=== PATIENT | female | born 1960 | race Caucasian/White ===

== ENCOUNTER 2020-02-06 11:29 | Inpatient (IN) | payer BC, OTHER ==
[~2020-02-06] VITALS: Ht 165.1 cm; Wt 62.6 kg
[~2020-02-06 11:29] MED LIST: NUBAIN IM; PROTONIX IV40 M1 PO; Z.0.DIAZEPAM10 MG PO; Z.0.PHENERGAN25 M1 PO; Z.0.SOMA350 MG PO; Z.0.TEMAZEPAM30 MG PO
[2020-02-06] MEDS ORDERED: DIATRIZOATE MEGL/DIATRIZOA SOD 30 ML BTL PO ONE (11:58)
[2020-02-06] MEDS ORDERED: ONDANSETRON HCL INJ 2MG/ML 2ML 2 MG/ML VIAL IV STA (12:05)
[2020-02-06] MEDS ORDERED: MORPHINE SULFATE INJ 4 MG/ML INJ 1ML IV STA (12:05)
[2020-02-06 12:20] LABS: BASOPHILS % 0.2 % (0.0-1.0); HEMOGLOBIN 14.7 g/dL (12.0-16.0); LYMPHOCYTES % 7.8 % (18.0-39.1); MEAN CORPUSCULAR HGB CONC 33.4 g/dL (31-35); MEAN CORPUSCULAR VOLUME 89.8 fL (81-99); MONOCYTES # (AUTO) 0.2 (0.2-0.8); MONOCYTES % 1.5 % (4.4-11.3); NEUTROPHILS # (AUTO) 11.7 (2.1-6.9); NEUTROPHILS % 90.1 % (38.7-80.0); PLATELET COUNT 468 x10e3/uL (140-360); RED CELL DISTRIBUTION WIDTH 12.4 % (11.7-14.4)
[2020-02-06 12:24] LABS: CLARITY,URINE CLOUDY (CLEAR); COLOR,URINE YELLOW (YELLOW); LEUKOCYTE ESTERASE ,URINE NEGATIVE (NEGATIVE); NITRITE,URINE NEGATIVE (NEGATIVE); PROTEIN,URINE DIPSTICK NEGATIVE (NEGATIVE)
[2020-02-06 12:25] LABS: KETONES,URINE NEGATIVE (NEGATIVE); URINE UROBILINOGEN 0.2 mg/dL (0.2 - 1)
[2020-02-06 12:37] LABS: EPITHELIAL CELLS,URINE FEW /LPF
[2020-02-06 12:38] LABS: BACTERIA,URINE FEW /HPF; RBC,URINE 0-5 /HPF (0-5); WBC,URINE (MAN) 0-5 /HPF (0-5)
[2020-02-06 12:41] LABS: ALANINE AMINOTRANSFERASE 13 IU/L (0-55); ALBUMIN 4.6 g/dL (3.5-5.0); ALBUMIN/GLOBULIN RATIO 1.2 (0.8-2.0); ALKALINE PHOSPHATASE 84 IU/L (40-150); ANION GAP 20.5 mmol/L (8-16); BLOOD UREA NITROGEN 15 mg/dL (7-26); BUN/CREATININE RATIO 21 (6-25); CALCIUM 10.1 mg/dL (8.4-10.2); CARBON DIOXIDE 19 mmol/L (22-29); CHLORIDE 104 mmol/L (98-107); CREATINE KINASE 77 IU/L (29-168); EST GLOMERULAR FILTRATION RATE > 60 ML/MIN (60-); GLUCOSE 153 mg/dL (74-118); POTASSIUM 3.5 mmol/L (3.5-5.1); SODIUM 140 mmol/L (136-145)
[2020-02-06] MEDS ORDERED: SODIUM CHLORIDE 0.9% 50ML 50 ML ONE (13:07)
[2020-02-06] MEDS ORDERED: IOPAMIDOL 370 MG/ML 200 ML INFUS..BTL INJ ONE (13:08)
[2020-02-06] MEDS ORDERED: PROMETHAZINE 25MG/ NS 50ML (IV) IV ONE (13:15)
[2020-02-06] MEDS ORDERED: SODIUM CHLORIDE 0.9% 1000ML 1,000 ML IV SCH (14:45)
[2020-02-06] MEDS ORDERED: MORPHINE SULFATE 2 MG/ML SYR 1ML IV PRN (14:45)
[2020-02-06] MEDS ORDERED: METRONIDAZOLE 500MG/NS 100ML 100 ML IV SCH ×2 (16:00)
[2020-02-06] MEDS ORDERED: CIPROFLOXACIN 400 MG/D5W 200ML 200 ML IV SCH (16:00)
[2020-02-06] MEDS ORDERED: NON-FORMULARY MEDICATION (Diazepam 10 MG) PO SCH (17:30)
[2020-02-06] MEDS ORDERED: NON-FORMULARY MEDICATION (Temazepam 30 MG) PO PRN (17:30)
[2020-02-06] MEDS: KCL 20MEQ/.9 SOD CHL 1,000 ML IV SCH (17:30)
[2020-02-06] MEDS ORDERED: PROMETHAZINE 12.5MG/ NACL 0.9% 12.5 MG/50 ML BAG IV ONE (17:30)
[2020-02-06] MEDS ORDERED: DIAZEPAM 5 MG TAB PO PRN (17:45)
[2020-02-06] MEDS: PANTOPRAZOLE 40 MG 10ML VIAL IV SCH (18:21)
[2020-02-06] MEDS: MORPHINE SULFATE INJ 4 MG/ML INJ 1ML IV PRN ×2 (18:21→22:50)
[2020-02-06] MEDS: CEFTRIAXONE SOD 1 GM/NS 50 ML 50 ML IV SCH (19:07)
[2020-02-06 20:00] VITALS: BP 116/73
[2020-02-06 20:20] VITALS: BP 116/73
[2020-02-06] MEDS: GABAPENTIN 300 MG CAP PO SCH (20:20)
[2020-02-06] MEDS: CARISOPRODOL 350 MG TAB PO SCH (20:31)
[2020-02-06] MEDS ORDERED: TEMAZEPAM 15 MG CAP PO PRN (21:00)
[2020-02-06] MEDS: ONDANSETRON HCL INJ 2MG/ML 2ML 2 MG/ML VIAL IV PRN (22:50)
[2020-02-07] VITALS (8 sets, daily range): BP systolic 110–160; BP diastolic 57–95
[2020-02-07] MEDS ORDERED: METRONIDAZOLE 500MG/NS 100ML 100 ML IV SCH
[2020-02-07] MEDS: METRONIDAZOLE 500MG/NS 100ML 100 ML IV SCH ×3 (00:45→18:17)
[2020-02-07] MEDS: KCL 20MEQ/.9 SOD CHL 1,000 ML IV SCH ×2 (02:04→14:22)
[2020-02-07] MEDS: MORPHINE SULFATE INJ 4 MG/ML INJ 1ML IV PRN ×4 (04:50→18:40)
[2020-02-07] MEDS: ONDANSETRON HCL INJ 2MG/ML 2ML 2 MG/ML VIAL IV PRN ×4 (04:50→18:40)
[2020-02-07] MEDS ORDERED: CITRATE OF MAGNESIA 300ML BOTTLE PO ONE ×3 (05:00→14:00)
[2020-02-07 05:46] LABS: BASOPHILS % 0.2 % (0.0-1.0); EOSINOPHILS % 0.1 % (0.0-6.0); HEMATOCRIT 39.3 % (34.2-44.1); HEMOGLOBIN 12.9 g/dL (12.0-16.0); LYMPHOCYTES # (AUTO) 2.7 (1.0-3.2); LYMPHOCYTES % 17.8 % (18.0-39.1); MEAN CORPUSCULAR HEMOGLOBIN 30.1 pg (28-32); MEAN CORPUSCULAR HGB CONC 32.8 g/dL (31-35); MEAN CORPUSCULAR VOLUME 91.6 fL (81-99); MONOCYTES # (AUTO) 1.4 (0.2-0.8); MONOCYTES % 9.2 % (4.4-11.3); NEUTROPHILS # (AUTO) 11.1 (2.1-6.9); NEUTROPHILS % 72.2 % (38.7-80.0); PLATELET COUNT 376 x10e3/uL (140-360); RED BLOOD COUNT 4.29 x10e6/uL (3.6-5.1)
[2020-02-07 06:18] LABS: ANION GAP 12.3 mmol/L (8-16); BLOOD UREA NITROGEN 10 mg/dL (7-26); BUN/CREATININE RATIO 15 (6-25); CARBON DIOXIDE 25 mmol/L (22-29); CHLORIDE 109 mmol/L (98-107); CREATININE, SERUM 0.65 mg/dL (0.57-1.11); EST GLOMERULAR FILTRATION RATE > 60 ML/MIN (60-); GLUCOSE 113 mg/dL (74-118); POTASSIUM 3.3 mmol/L (3.5-5.1); SODIUM 143 mmol/L (136-145)
[2020-02-07] MEDS: PROMETHAZINE 12.5MG/ NACL 0.9% 12.5 MG/50 ML BAG IV PRN (07:44)
[2020-02-07] MEDS: PANTOPRAZOLE 40 MG 10ML VIAL IV SCH ×2 (09:19→18:17)
[2020-02-07] MEDS: CARISOPRODOL 350 MG TAB PO SCH ×3 (09:19→20:30)
[2020-02-07] MEDS: CEFTRIAXONE SOD 1 GM/NS 50 ML 50 ML IV SCH (18:17)
[2020-02-07] MEDS ORDERED: BISACODYL 5 MG TAB EC PO ONE (19:15)
[2020-02-07] MEDS: GABAPENTIN 300 MG CAP PO SCH (20:30)
[2020-02-08] VITALS (7 sets, daily range): BP systolic 104–152; BP diastolic 61–81
[2020-02-08] MEDS ORDERED: BISACODYL 5 MG TAB EC PO ONE ×3 (00:45→01:45)
[2020-02-08] MEDS: METRONIDAZOLE 500MG/NS 100ML 100 ML IV SCH ×3 (01:00→16:51)
[2020-02-08] MEDS: KCL 20MEQ/.9 SOD CHL 1,000 ML IV SCH ×3 (04:00→19:30)
[2020-02-08 04:59] LABS: BASOPHILS % 0.2 % (0.0-1.0); EOSINOPHILS % 0.2 % (0.0-6.0); HEMATOCRIT 40.4 % (34.2-44.1); HEMOGLOBIN 13.1 g/dL (12.0-16.0); LYMPHOCYTES # (AUTO) 3.3 (1.0-3.2); LYMPHOCYTES % 24.1 % (18.0-39.1); MEAN CORPUSCULAR HEMOGLOBIN 30.4 pg (28-32); MEAN CORPUSCULAR HGB CONC 32.4 g/dL (31-35); MEAN CORPUSCULAR VOLUME 93.7 fL (81-99); MONOCYTES # (AUTO) 1.1 (0.2-0.8); MONOCYTES % 7.8 % (4.4-11.3); NEUTROPHILS # (AUTO) 9.1 (2.1-6.9); NEUTROPHILS % 67.3 % (38.7-80.0); PLATELET COUNT 408 x10e3/uL (140-360); RED BLOOD COUNT 4.31 x10e6/uL (3.6-5.1); RED CELL DISTRIBUTION WIDTH 12.6 % (11.7-14.4)
[2020-02-08 05:15] LABS: ANION GAP 11.3 mmol/L (8-16); BLOOD UREA NITROGEN 9 mg/dL (7-26); BUN/CREATININE RATIO 13 (6-25); CALCIUM 8.8 mg/dL (8.4-10.2); CARBON DIOXIDE 25 mmol/L (22-29); CHLORIDE 107 mmol/L (98-107); CREATININE, SERUM 0.69 mg/dL (0.57-1.11); EST GLOMERULAR FILTRATION RATE > 60 ML/MIN (60-); GLUCOSE 97 mg/dL (74-118); POTASSIUM 3.3 mmol/L (3.5-5.1); SODIUM 140 mmol/L (136-145)
[2020-02-08] MEDS: CARISOPRODOL 350 MG TAB PO SCH ×4 (08:32→21:30)
[2020-02-08] MEDS: PANTOPRAZOLE 40 MG 10ML VIAL IV SCH ×2 (08:34→16:18)
[2020-02-08] MEDS: PROMETHAZINE 12.5MG/ NACL 0.9% 12.5 MG/50 ML BAG IV PRN ×3 (08:52→23:00)
[2020-02-08] MEDS ORDERED: LIDOCAINE HCL 2% LOCAL INJ 5 ML SDV VIAL INJ ONE (12:09)
[2020-02-08] MEDS ORDERED: PROPOFOL IV EMULSION 10 MG/ML 20 ML VIAL ONE (12:09)
[2020-02-08] MEDS: ONDANSETRON HCL INJ 2MG/ML 2ML 2 MG/ML VIAL IV PRN ×3 (12:44→18:20)
[2020-02-08] MEDS: MORPHINE SULFATE INJ 4 MG/ML INJ 1ML IV PRN ×4 (12:44→23:00)
[2020-02-08] MEDS ORDERED: FENTANYL CITRATE/PF 100MCG/2 ML INJ ONE (12:49)
[2020-02-08] MEDS ORDERED: MIDAZOLAM HCL 2 MG/2 ML VIAL ONE (12:49)
[2020-02-08] MEDS ORDERED: HYOSCYAMINE SULFATE 0.5 MG/ML INJ ONE (14:34)
[2020-02-08 15:49] LABS: WBC,FECAL (FECAL LACTOFERRIN) POSITIVE (NEGATIVE)
[2020-02-08] MEDS: CEFTRIAXONE SOD 1 GM/NS 50 ML 50 ML IV SCH (18:13)
[2020-02-08] MEDS: GABAPENTIN 300 MG CAP PO SCH (21:30)
[2020-02-09] VITALS (8 sets, daily range): BP systolic 122–139; BP diastolic 63–81
[2020-02-09] MEDS: METRONIDAZOLE 500MG/NS 100ML 100 ML IV SCH ×3 (01:00→16:06)
[2020-02-09] MEDS: ONDANSETRON HCL INJ 2MG/ML 2ML 2 MG/ML VIAL IV PRN ×4 (05:00→20:02)
[2020-02-09] MEDS: MORPHINE SULFATE INJ 4 MG/ML INJ 1ML IV PRN ×4 (05:00→20:02)
[2020-02-09] MEDS: KCL 20MEQ/.9 SOD CHL 1,000 ML IV SCH ×3 (05:30→21:00)
[2020-02-09 05:36] LABS: MAGNESIUM 1.8 MG/DL (1.3-2.1); PHOSPHORUS 2.6 MG/DL (2.3-4.7)
[2020-02-09 05:49] LABS: ANION GAP 11.1 mmol/L (8-16); BLOOD UREA NITROGEN 9 mg/dL (7-26); BUN/CREATININE RATIO 13 (6-25); CALCIUM 8.1 mg/dL (8.4-10.2); CARBON DIOXIDE 24 mmol/L (22-29); CHLORIDE 110 mmol/L (98-107); CREATININE, SERUM 0.67 mg/dL (0.57-1.11); EST GLOMERULAR FILTRATION RATE > 60 ML/MIN (60-); GLUCOSE 85 mg/dL (74-118); POTASSIUM 3.1 mmol/L (3.5-5.1); SODIUM 142 mmol/L (136-145)
[2020-02-09] MEDS ORDERED: MAGNESIUM SULFATE 2GM/50ML IV ONE (07:45)
[2020-02-09] MEDS: PANTOPRAZOLE 40 MG 10ML VIAL IV SCH ×2 (08:30→16:06)
[2020-02-09] MEDS: PROMETHAZINE 12.5MG/ NACL 0.9% 12.5 MG/50 ML BAG IV PRN (08:30)
[2020-02-09] MEDS: CARISOPRODOL 350 MG TAB PO SCH ×3 (08:30→20:29)
[2020-02-09] MEDS ORDERED: MAGNESIUM SULFATE 2GM/50ML 50 ML IV ONE (08:30)
[2020-02-09] MEDS ORDERED: POTASSIUM CHLORIDE 10MEQ EA PO ONE (08:45)
[2020-02-09] MEDS ORDERED: GADOBENATE DIMEGLUMINE 1 ML IV ONE (13:54)
[2020-02-09] MEDS ORDERED: SODIUM CHLORIDE 0.9% 100 ML ONE (13:54)
[2020-02-09 15:12] LABS: C DIFFICILE TOXIN A&B AMP PROB NEGATIVE (NEGATIVE)
[2020-02-09] MEDS: CEFTRIAXONE SOD 1 GM/NS 50 ML 50 ML IV SCH (16:51)
[2020-02-09] MEDS: GABAPENTIN 300 MG CAP PO SCH (20:29)
[2020-02-10] VITALS (7 sets, daily range): BP systolic 115–137; BP diastolic 64–84
[2020-02-10] MEDS: MORPHINE SULFATE INJ 4 MG/ML INJ 1ML IV PRN ×6 (00:13→22:36)
[2020-02-10] MEDS: ONDANSETRON HCL INJ 2MG/ML 2ML 2 MG/ML VIAL IV PRN ×5 (00:13→22:36)
[2020-02-10] MEDS: METRONIDAZOLE 500MG/NS 100ML 100 ML IV SCH ×3 (00:13→17:50)
[2020-02-10] MEDS ORDERED: PANTOPRAZOLE 40 MG 10ML VIAL IV STA (00:56)
[2020-02-10] MEDS ORDERED: METOCLOPRAMIDE HCL 10 MG/2ML VIAL IV STA (00:56)
[2020-02-10] MEDS ORDERED: DONNATAL/LIDOCAINE/MAALOX 30 ML SUSP PO ONE (01:00)
[2020-02-10] MEDS ORDERED: MAGNESIUM/ALUMINUM/SIMETHICONE 30 ML UDC PO ONE (01:15)
[2020-02-10] MEDS ORDERED: BELLADONNA ALK/PHENOBARBITAL 5 ML UDC PO ONE (01:15)
[2020-02-10] MEDS ORDERED: LIDOCAINE VISC 2% SOLN 15 ML UDC PO ONE (01:15)
[2020-02-10] MEDS ORDERED: SODIUM CHLORIDE 0.9% 250ML 250 ML ONE (02:09)
[2020-02-10] MEDS: PANTOPRAZOL 40MG/SOD CHL 0.9% 250 ML IV SCH (02:33)
[2020-02-10] MEDS ORDERED: METOCLOPRAMIDE HCL 10 MG/2ML VIAL IV SCH (06:00)
[2020-02-10 06:03] LABS: BASOPHILS % 0.4 % (0.0-1.0); EOSINOPHILS # (AUTO) 0.3 (0.0-0.4); EOSINOPHILS % 2.8 % (0.0-6.0); HEMATOCRIT 36.3 % (34.2-44.1); HEMOGLOBIN 11.7 g/dL (12.0-16.0); LYMPHOCYTES # (AUTO) 3.2 (1.0-3.2); LYMPHOCYTES % 28.6 % (18.0-39.1); MEAN CORPUSCULAR HEMOGLOBIN 29.6 pg (28-32); MEAN CORPUSCULAR HGB CONC 32.2 g/dL (31-35); MEAN CORPUSCULAR VOLUME 91.9 fL (81-99); MONOCYTES % 9.1 % (4.4-11.3); NEUTROPHILS # (AUTO) 6.5 (2.1-6.9); NEUTROPHILS % 58.7 % (38.7-80.0); PLATELET COUNT 326 x10e3/uL (140-360); RED BLOOD COUNT 3.95 x10e6/uL (3.6-5.1); RED CELL DISTRIBUTION WIDTH 12.8 % (11.7-14.4)
[2020-02-10 06:21] LABS: MAGNESIUM 1.8 MG/DL (1.3-2.1); PHOSPHORUS 2.9 MG/DL (2.3-4.7)
[2020-02-10 06:35] LABS: ANION GAP 10.6 mmol/L (8-16); BLOOD UREA NITROGEN < 5 mg/dL (7-26); CALCIUM 8.2 mg/dL (8.4-10.2); CARBON DIOXIDE 25 mmol/L (22-29); CHLORIDE 110 mmol/L (98-107); CREATININE, SERUM 0.61 mg/dL (0.57-1.11); EST GLOMERULAR FILTRATION RATE > 60 ML/MIN (60-); GLUCOSE 86 mg/dL (74-118); POTASSIUM 3.6 mmol/L (3.5-5.1); SODIUM 142 mmol/L (136-145)
[2020-02-10 06:37] LABS: BUN/CREATININE RATIO 8 (6-25)
[2020-02-10] MEDS: KCL 20MEQ/.9 SOD CHL 1,000 ML IV SCH ×2 (07:32→21:30)
[2020-02-10] MEDS: PANTOPRAZOLE 40 MG 10ML VIAL IV SCH (09:26)
[2020-02-10] MEDS: CARISOPRODOL 350 MG TAB PO SCH ×3 (09:26→21:12)
[2020-02-10] MEDS: METOCLOPRAMIDE HCL 10 MG TAB PO SCH ×3 (11:30→21:12)
[2020-02-10] MEDS: CEFTRIAXONE SOD 1 GM/NS 50 ML 50 ML IV SCH (18:21)
[2020-02-10] MEDS: GABAPENTIN 300 MG CAP PO SCH (21:12)
[2020-02-11] VITALS: BP 155/82
[2020-02-11] MEDS: METRONIDAZOLE 500MG/NS 100ML 100 ML IV SCH ×2 (00:43→09:00)
[2020-02-11] MEDS: PANTOPRAZOL 40MG/SOD CHL 0.9% 250 ML IV SCH ×2 (01:00→06:01)
[2020-02-11] MEDS: ONDANSETRON HCL INJ 2MG/ML 2ML 2 MG/ML VIAL IV PRN ×2 (02:36→06:38)
[2020-02-11] MEDS: MORPHINE SULFATE INJ 4 MG/ML INJ 1ML IV PRN ×2 (02:36→06:38)
[2020-02-11 04:00] VITALS: BP 136/68
[2020-02-11 05:57] LABS: BASOPHILS % 0.3 % (0.0-1.0); EOSINOPHILS # (AUTO) 0.3 (0.0-0.4); HEMATOCRIT 37.4 % (34.2-44.1); HEMOGLOBIN 12.1 g/dL (12.0-16.0); LYMPHOCYTES # (AUTO) 2.5 (1.0-3.2); LYMPHOCYTES % 26.6 % (18.0-39.1); MEAN CORPUSCULAR HEMOGLOBIN 30.4 pg (28-32); MEAN CORPUSCULAR HGB CONC 32.4 g/dL (31-35); MONOCYTES # (AUTO) 0.9 (0.2-0.8); MONOCYTES % 9.7 % (4.4-11.3); NEUTROPHILS # (AUTO) 5.7 (2.1-6.9); NEUTROPHILS % 60.1 % (38.7-80.0); PLATELET COUNT 352 x10e3/uL (140-360); RED BLOOD COUNT 3.98 x10e6/uL (3.6-5.1); RED CELL DISTRIBUTION WIDTH 12.6 % (11.7-14.4)
[2020-02-11] MEDS: KCL 20MEQ/.9 SOD CHL 1,000 ML IV SCH (06:01)
[2020-02-11 06:15] LABS: ANION GAP 10.9 mmol/L (8-16); BLOOD UREA NITROGEN < 5 mg/dL (7-26); CALCIUM 8.7 mg/dL (8.4-10.2); CARBON DIOXIDE 27 mmol/L (22-29); CHLORIDE 108 mmol/L (98-107); CREATININE, SERUM 0.63 mg/dL (0.57-1.11); EST GLOMERULAR FILTRATION RATE > 60 ML/MIN (60-); GLUCOSE 95 mg/dL (74-118); POTASSIUM 3.9 mmol/L (3.5-5.1); SODIUM 142 mmol/L (136-145)
[2020-02-11 06:35] LABS: BUN/CREATININE RATIO 8 (6-25)
[2020-02-11] MEDS: METOCLOPRAMIDE HCL 10 MG TAB PO SCH (07:07)
[2020-02-11 07:38] VITALS: BP 149/89
[2020-02-11 08:05] VITALS: BP 149/89
[2020-02-11] MEDS: CARISOPRODOL 350 MG TAB PO SCH (09:00)
[2020-02-11] MEDS ORDERED: ZOFRAN4 MG PO (10:32)
[2020-02-11] MEDS ORDERED: QUESTRAN PACKET4 GM PO (10:32)
[2020-02-11] MEDS ORDERED: REGLAN5 MG PO (10:32)
[2020-02-11] MEDS ORDERED: POTASSIUM CHLO10 ME1 PO (10:33)
== END 2020-02-11 10:50 | disposition home or self-care (01) | DRG 395 ==
LOC: ER 11:35 → ERHOLD 14:47 → MED/SURG2 19:34
PROVIDERS: ADMIT Internal Medicine; ATTEND Internal Medicine
PROC: 0DBN8ZX Excision of Sigmoid Colon, Via Natural or Artificial Opening Endoscopic, Diagnostic (ICD-10-PCS; principal; 2020-02-08 14:15)
DX: K55.032 Diffuse acute (reversible) ischemia of large intestine (principal); K55.1 Chronic vascular disorders of intestine; E86.0 Dehydration; I95.89 Other hypotension; K63.5 Polyp of colon; K64.8 Other hemorrhoids; E87.6 Hypokalemia; F41.9 Anxiety disorder, unspecified; K21.9 Gastro-esophageal reflux disease without esophagitis; K44.9 Diaphragmatic hernia without obstruction or gangrene; G47.00 Insomnia, unspecified; Z20.828 Contact with and (suspected) exposure to other viral communicable diseases
CPT/HCPCS: 36415; 45378; 45380; 45384; 45385; 74177; 74185; 80048; 80053; 81001; 82550; 82553; 83630; 83690; 83735; 83993; 84100; 84484; 85025; 87045; 87177; 87328; 87493; 88305; 93005; 96361; 99284; J0696; J1980; J2001; J2250; J2270; J2405; J2550; J2765; J3010; J3475; J7030; J7050; Q9967; U0002

== ENCOUNTER 2020-08-18 07:53 | Emergency (ER) | payer BC ==
[~2020-08-18] VITALS: Ht 165.1 cm; Wt 62.6 kg
[~2020-08-18 07:53] MED LIST changes: +POTASSIUM CHLO10 ME1 PO; +QUESTRAN PACKET4 GM PO; +REGLAN5 MG PO; +ZOFRAN4 MG PO
[2020-08-18] MEDS ORDERED: ONDANSETRON HCL INJ 2MG/ML 2ML 2 MG/ML VIAL IV STA ×2 (08:01→09:45)
[2020-08-18] MEDS ORDERED: SODIUM CHLORIDE 0.9% 1000ML 1,000 ML IV STA (08:01)
[2020-08-18] MEDS ORDERED: DICYCLOMINE HCL 20 MG/2 ML VIAL IM ONE (08:15)
[2020-08-18 08:39] LABS: BASOPHILS % 0.3 % (0.0-1.0); EOSINOPHILS # (AUTO) 0.1 (0.0-0.4); EOSINOPHILS % 0.5 % (0.0-6.0); HEMATOCRIT 44.6 % (34.2-44.1); HEMOGLOBIN 14.4 g/dL (12.0-16.0); LYMPHOCYTES # (AUTO) 2.2 (1.0-3.2); MEAN CORPUSCULAR HEMOGLOBIN 29.6 pg (28-32); MEAN CORPUSCULAR HGB CONC 32.3 g/dL (31-35); MEAN CORPUSCULAR VOLUME 91.8 fL (81-99); MONOCYTES # (AUTO) 0.6 (0.2-0.8); MONOCYTES % 5.4 % (4.4-11.3); NEUTROPHILS # (AUTO) 7.2 (2.1-6.9); NEUTROPHILS % 71.5 % (38.7-80.0); PLATELET COUNT 445 x10e3/uL (140-360); RED BLOOD COUNT 4.86 x10e6/uL (3.6-5.1); RED CELL DISTRIBUTION WIDTH 12.9 % (11.7-14.4)
[2020-08-18 09:05] LABS: ALANINE AMINOTRANSFERASE 13 IU/L (0-55); ALBUMIN 4.4 g/dL (3.5-5.0); ALBUMIN/GLOBULIN RATIO 1.1 (0.8-2.0); ALKALINE PHOSPHATASE 88 IU/L (40-150); ANION GAP 16.9 mmol/L (8-16); BLOOD UREA NITROGEN 16 mg/dL (7-26); BUN/CREATININE RATIO 20 (6-25); CALCIUM 9.9 mg/dL (8.4-10.2); CARBON DIOXIDE 27 mmol/L (22-29); CHLORIDE 103 mmol/L (98-107); CREATINE KINASE 42 IU/L (29-168); CREATININE, SERUM 0.79 mg/dL (0.57-1.11); EST GLOMERULAR FILTRATION RATE > 60 ML/MIN (60-); GLUCOSE 137 mg/dL (74-118); POTASSIUM 3.9 mmol/L (3.5-5.1); SODIUM 143 mmol/L (136-145)
[2020-08-18 09:10] LABS: CLARITY,URINE SL CLOUDY (CLEAR); COLOR,URINE YELLOW (YELLOW); LEUKOCYTE ESTERASE ,URINE NEGATIVE (NEGATIVE); NITRITE,URINE NEGATIVE (NEGATIVE)
[2020-08-18 09:11] LABS: KETONES,URINE 2+ (NEGATIVE); PROTEIN,URINE DIPSTICK TRACE (NEGATIVE); URINE UROBILINOGEN 0.2 mg/dL (0.2 - 1)
[2020-08-18] MEDS ORDERED: IOPAMIDOL 370 MG/ML 200 ML INFUS..BTL INJ ONE (09:31)
[2020-08-18] MEDS ORDERED: SODIUM CHLORIDE 0.9% 50ML 50 ML ONE (09:31)
[2020-08-18 09:33] LABS: BACTERIA,URINE FEW /HPF; EPITHELIAL CELLS,URINE FEW /LPF; RBC,URINE 0-5 /HPF (0-5); WBC,URINE (MAN) 0-5 /HPF (0-5)
[2020-08-18] MEDS ORDERED: MORPHINE SULFATE INJ 4 MG/ML INJ 1ML IV ONE (10:15)
[2020-08-18] MEDS ORDERED: METHYLPREDNISOLONE SOD SUCC 125 MG/2ML VIAL IV STA (10:26)
== END 2020-08-18 11:30 | disposition home or self-care (01) ==
LOC: ER 08:28
DX: R10.9 Unspecified abdominal pain (principal); R11.2 Nausea with vomiting, unspecified; R19.7 Diarrhea, unspecified; F41.9 Anxiety disorder, unspecified; K21.9 Gastro-esophageal reflux disease without esophagitis; G47.00 Insomnia, unspecified
CPT/HCPCS: 36415; 74177; 80053; 81001; 82550; 82553; 83735; 84484; 85025; 87086; 99284; C9113; J0500; J2270; J2405; J2930; J7030; Q9967